=== PATIENT | female | born 1955 | race Two or more races ===

== ENCOUNTER 2023-01-13 21:57 | Emergency (ER) | payer OTHER ==
[~2023-01-13] VITALS: Ht 167.6 cm; Wt 86.2 kg
[2023-01-13] MEDS ORDERED: TOPROL XL25 M1 PO (22:19)
[2023-01-13] MEDS ORDERED: CYMBALTA60 MG PO (22:20)
[2023-01-13] MEDS ORDERED: ELIQUIS5 MG PO (22:20)
[2023-01-14] MEDS ORDERED: KETO10TA2 PO (02:50)
== END 2023-01-14 02:58 ==
LOC: ER 21:57
DX: S83.92XA Sprain of unspecified site of left knee, initial encounter (principal); X58.XXXA Exposure to other specified factors, initial encounter; Y93.01 Activity, walking, marching and hiking; Y92.89 Other specified places as the place of occurrence of the external cause; Y99.9 Unspecified external cause status; Z88.8 Allergy status to other drugs, medicaments and biological substances; I10 Essential (primary) hypertension